=== PATIENT | male | born 1985 | race Caucasian/White ===

== ENCOUNTER 2020-08-25 23:42 | Emergency (ER) | payer BC, SELFPAY ==
[2020-08-25 23:48] VITALS: BP 127/98; PULSE 111; RESP 20; TEMP 37.2; O2SAT 96; BMI 30.7
--- NOTE | 2020-08-26 01:22 | ED.EYEPROB ---
HPI - Eye Problem General Chief complaint: Eye Problems Stated complaint: eye pain Time Seen by Provider: 08/26/20 00:04 Source: patient Mode of arrival: ambulatory History of Present Illness HPI Narrative: left eye pain. Patient has been having left eye pain for the intermittent for the past several weeks. Patient states has seen the ER doctor and then eye doctor and continues to have intermittent pain. Using p.r.n. eyedrops. No change in vision painful with movement eyelid. No nausea no vomiting no fevers MD chief complaint: eye pain ( left) Severity: mild Severity scale (1-10): 4 If Pain, Quality: sharp Related Data Home Medications Medication Instructions Recorded Confirmed cetirizine [Zyrtec] 10 mg PO DAILY 08/25/20 08/25/20 omeprazole 20 mg PO DAILY 08/25/20 08/25/20 sildenafil [Viagra] 100 mg PO DAILY PRN 08/25/20 08/25/20 Previous Rx's Medication Instructions Recorded erythromycin 1 applic OPHTHALMIC (EYE) 6XD 7 08/26/20 Days #3.5 g naproxen 500 mg PO Q8H PRN #20 tab 08/26/20 Allergies Allergy/AdvReac Type Severity Reaction Status Date / Time amoxicillin [AMOXICILLIN] Allergy Unknown HIVES Verified 08/25/20 23:53 ciprofloxacin [From CIPRO] Allergy Unknown UNKNOWN Verified 08/25/20 23:53 codeine [CODEINE] Allergy Unknown UNKNOWN Unverified 08/05/20 16:50 Review of Systems Review of Systems: Constitutional : No Weight loss, No Fever, No Chills, No Night Sweats, No Fatigue, No Malaise ENT/Mouth : No Hearing loss, No Ear Pain, No Nasal Congestion, No Sinus Pain, No Hoarseness, No sore throat, No Rhinorrhea, No Swallowing Difficulty Eyes: left Eye Pain, No Swelling, No Redness, No Foreign Body, No Discharge, No Vision Changes Cardiovascular : No Chest Pain, No SOB, No Dyspnea on Exertion, No Orthopnea, No Edema, No Palpitations Respiratory : No Cough, No Sputum, No Wheezing, No Smoke Exposure, No Dyspnea Gastrointestinal : No Nausea, No Vomiting, No Diarrhea, No Constipation, No abdominal Pain, No Hematochezia, No Melena Genitourinary : no irregular bleeding, No Dysuria, No Urinary Frequency, No Hematuria, No Urinary Incontinence, No Urgency, No Flank Pain, No Urinary Flow Changes, No Hesitancy Musculoskeletal : No joint pain, No Myalgias, No Joint Swelling Skin : No Skin Lesions, No rash Neuro : No Weakness, No Numbness, No Paresthesias, No Loss of Consciousness, No Dizziness, No Headache Psych : No Anxiety/Panic, No Depression, No SI/HI/AH/VH, No Social Issues, Heme/Lymph: No Bruising, No Bleeding,No Lymphadenopathy Endocrine : No Polyuria, No Polydipsia, No Temperature Intolerance Yes all other systems are reviewed and are negative [facility] Past Medical History Attestation statement: The following information was validated with the patient. Medical History (Updated 08/26/20 @ 01:54 by Mika Hardy DO) Patient denies medical problems Family History Family History (Updated 08/26/20 @ 01:52 by Mika Hardy DO) Other Patient denies medical problems Social History Social History Advance Directives: No Advance Directives Information Provided: No Physical Exam Vital Signs and I&O and Narrative: Vital Signs and I&O: Vital Signs Temp 98.9 F 08/25/20 23:48 Pulse 111 H 08/25/20 23:48 Resp 20 08/25/20 23:48 BP 127/98 H 08/25/20 23:48 Pulse Ox 96 08/25/20 23:48 Intake & Output 08/25/20 08/25/20 08/26/20 06:59 18:59 06:59 Weight 99.79 kg Body Mass Index 30.7 reviewed Appearance: Alert. Oriented X3. No acute distress. Eyes: Pupils equal, round and reactive to light. left eye pressure 13. positive fluorescein uptake on left. no foreign body identified ENT: Pharynx normal. Neck: Normal inspection. Neck supple. CVS: Normal heart rate and rhythm. Pulses normal. Respiratory: No respiratory distress. Breath sounds normal. Abdomen: Soft and nontender. Skin: Skin warm and dry. Normal skin color. Normal skin turgor. Extremities: No lower extremity edema. No lower extremity edema. Neuro: Oriented X 3. No motor deficit. No sensory deficit. Discharge Plan Discharge Clinical Impression: Corneal abrasion Qualifiers: Encounter type: initial encounter Laterality: left Qualified Code(s): S05.02XA - Injury of conjunctiva and corneal abrasion without foreign body, left eye, initial encounter Patient Disposition: Home, Self-Care Instructions: Corneal Abrasion (ED) Additional Instructions: Thank you for visiting the emergency department today. If your symptoms worsen or do not resolve completely please return to the emergency department immediately or call 911. if he have any questions please call your primary care physician Prescriptions: New erythromycin 5 mg/gram (0.5 %) ointment 1 applic ophthalmic (eye) 6XD 7 Days Qty: 3.5 RF: 0 naproxen 500 mg tablet 500 mg PO Q8H PRN (Reason: pain) Qty: 20 RF: 0 No Action cetirizine [Zyrtec] 10 mg Tablet 10 mg PO DAILY RF: 0 sildenafil [Viagra] 100 mg Tablet 100 mg PO DAILY PRN (Reason: Erectile Dysfunction) RF: 0 omeprazole 20 mg Capsule,Delayed Release(Dr/Ec) 20 mg PO DAILY RF: 0 Referrals: Justin Borges [Physician] - 2 days Stand Alone Forms: Work/School Release Interventions: ED Discharge Assessment Last Done: 08/26/20 02:15 Discharge Date/Time: 08/26/20 02:19
[2020-08-26] MEDS: Fluorescein Sodium STRIP 1 STRIP EYE-LEFT (01:56)
[2020-08-26] MEDS: Tetracaine HCl/PF 0.5% Oph Sol 4 ML DROPS 3 DROP EYE-LEFT (01:56)
[2020-08-26] MEDS: Erythromycin Base 0.5% Oph Oin 1 GM TUBE 1 CM EYE-LEFT (01:58)
== END 2020-08-26 02:19 | disposition home or self-care (01) ==
PROVIDERS: Emergency Provider Emergency Medicine
DX: S05.02XA Injury of conjunctiva and corneal abrasion without foreign body, left eye, initial encounter (principal); X58.XXXA Exposure to other specified factors, initial encounter; Y93.9 Activity, unspecified; Y92.9 Unspecified place or not applicable; Y99.9 Unspecified external cause status
CPT/HCPCS: 90471; 90715; 99283; 99284

== ENCOUNTER 2021-01-26 03:27 | Emergency (ER) | payer BC, SELFPAY ==
--- NOTE | 2021-01-26 | ECG_ITS ---
Test Reason : CHEST PAIN Blood Pressure : / mmHG Vent. Rate : 081 BPM Atrial Rate : 081 BPM P-R Int : 168 ms QRS Dur : 098 ms QT Int : 374 ms P-R-T Axes : 026 014 028 degrees QTc Int : 434 ms Normal sinus rhythm Normal ECG No previous ECGs available Referred By: Suresh Harrison Electronically Signed By:Waldo Glasgow
--- NOTE | ~2021-01-26 | XR_ITS ---
EXAMINATION: XR CHEST CLINICAL INFORMATION: Chest pain COMPARISON: Chest radiographs 03/28/2016, 12/04/2015 TECHNIQUE: Portable upright AP view of the chest was obtained. FINDINGS: There is no pneumothorax, pneumomediastinum, pleural reaction, or effusion. The heart is normal in size. The vascularity is normal. There is some mild coarsening of the bronchiolar markings but no airspace consolidation or groundglass opacity. The hilar and mediastinal contours and bony structures are unremarkable. XR/XR chest 1V IMPRESSION: Mild coarsening bronchiolar markings. Lungs otherwise clear.
== END 2021-01-26 06:00 | disposition home or self-care (01) ==
PROVIDERS: Emergency Provider Internal Medicine
DX: R07.89 Other chest pain (principal); I10 Essential (primary) hypertension; E11.9 Type 2 diabetes mellitus without complications; E78.5 Hyperlipidemia, unspecified; K22.70 Barrett's esophagus without dysplasia; F17.200 Nicotine dependence, unspecified, uncomplicated
CPT/HCPCS: 71045; 93005; 99283

== ENCOUNTER 2022-03-28 18:27 | Emergency (ER) | payer BC, SELFPAY ==
--- NOTE | 2022-03-28 | ECG_ITS ---
Test Reason : CP Blood Pressure : / mmHG Vent. Rate : 092 BPM Atrial Rate : 092 BPM P-R Int : 146 ms QRS Dur : 098 ms QT Int : 346 ms P-R-T Axes : 024 049 044 degrees QTc Int : 427 ms Normal sinus rhythm Normal ECG When compared with ECG of 26-JAN-2021 03:52, No significant change was found Referred By: Generic ED Physician Electronically Signed By:RUSTY ANG MD
[2022-03-28 18:30] VITALS: BP 146/90; PULSE 99; RESP 18; TEMP 35.9; O2SAT 96; BMI 29.0
[2022-03-28 18:44] LABS: MANUAL DIFF FLAG NO
[2022-03-28 18:53] LABS: Basophils Absolute Auto 0.1 X10*3/uL (0.0-0.2); Basophils Percent Auto 0.7 % (0-2); Eosinophils Absolute Auto 0.5 X10*3/uL (0.0-0.4); Eosinophils Percent Auto 7.5 % (0-4); Hematocrit 47.4 % (42.0-52.0); Hemoglobin 16.5 g/dl (14.0-18.0); Imm Gran Abs Auto 0.03 X10*3/uL (0.00-0.03); Imm Gran Pct Auto 0.4 % (0.0-0.4); Lymphocytes Absolute Auto 2.3 X10*3/uL (1.2-4.9); Lymphocytes Percent Auto 31.9 % (20-40); Mean Corpuscular HGB Conc 34.8 g/dl (31.0-36.0); Mean Corpuscular Volume 88.9 fL (80.0-98.0); Monocytes Absolute Auto 0.5 X10*3/uL (0.1-1.2); Monocytes Percent Auto 7.5 % (2-11); Neutrophils Absolute Auto 3.7 x10*3/uL (2.0-8.3); Platelet Count 239 X10*3/uL (160-400); Red Blood Count 5.33 X10*6/uL (4.60-5.80); Red Cell Distribution Width 12.3 % (11.0-16.0); White Blood Count 7.2 X10*3/uL (4.8-10.8)
[2022-03-28 19:02] LABS: Alanine Aminotransferase 29 U/L (0-40); Albumin Level 4.5 g/dL (3.5-5.0); Alkaline Phosphatase 66 U/L (39-117); Anion Gap 12 (12-20); Aspartate Amino Transferase 24 U/L (5-37); Bilirubin Total 0.3 mg/dL (0.0-1.0); Blood Urea Nitrogen 20 mg/dL (9-16); Calcium 9.5 mg/dL (8.4-10.2); Carbon Dioxide 26 mmol/L (22-29); Chloride 105 mmol/L (96-108); Creatinine Clr Calc Pharmacy 112.4; Estimated Glomerular Filt Rate > 60; Glucose Random 92 mg/dL (60-115); Potassium 4.1 mmol/L (3.3-5.1); Sodium 139 mmol/L (135-145); Total Protein 7.2 g/dL (6.5-8.0)
[2022-03-28 19:07] LABS: Troponin-I High Sensitivity < 3.5 ng/L (<3.5-35.0)
[2022-03-28 22:00] VITALS: BP 127/82; PULSE 81; RESP 16; TEMP 36.6; O2SAT 98
--- NOTE | 2022-03-28 22:03 | ED_ITS ---
HPI - Chest Pain General Chief Complaint: Chest Pain Stated Complaint: HBP/dizziness/right arm numb Time Seen by Provider: 03/28/22 22:03 Source: patient Mode of arrival: ambulatory Limitations: no limitations History of Present Illness HPI narrative: Patient is a 36 year old male presenting to the emergency department today after drinking excess caffeine and having a short episode of chest tightness. Patient states that he consumed a total of 600mg of caffeine today and he usually only has 200mg. Patient states that shortly after he finished his final Bang energy drink, he began to feel a chest tightness. Patient states that has now resolved. Patient denies any current dizziness, lightheadedness, abdominal pain, nausea, vomiting, fever, chills, blurry vision, double vision, loss of vision, chest pain, difficulty breathing, shortness of breath, back pain, night sweats, pain with urination, increased urinary frequency, increased urinary urgency, blood in his urine or stool, syncope or a near syncopal episode, recent trauma or falls, bowel incontinence, bladder incontinence, bowel retention, bladder retention, or any other complaints at this time. Patient states that he had an episode similar to this and it was due to excess caffeine then. Risk Factors Coronary artery disease risk factors: none Thoracic aortic dissection risk factors: none Related Data Home Medications Medication Instructions Recorded Confirmed cetirizine 10 mg tablet (Zyrtec) 10 mg PO DAILY 08/25/20 08/25/20 omeprazole 20 mg capsule,delayed 20 mg PO DAILY 08/25/20 08/25/20 release sildenafil 100 mg tablet (Viagra) 100 mg PO DAILY PRN 08/25/20 08/25/20 Previous Rx's Medication Instructions Recorded erythromycin 5 mg/gram (0.5 %) eye 1 applic OPHTHALMIC (EYE) 6XD 7 08/26/20 ointment Days #3.5 g naproxen 500 mg tablet 500 mg PO Q8H PRN #20 tab 08/26/20 Allergies Allergy/AdvReac Type Severity Reaction Status Date / Time amoxicillin [AMOXICILLIN] Allergy Unknown HIVES Verified 08/25/20 23:53 ciprofloxacin [From CIPRO] Allergy Unknown UNKNOWN Verified 08/25/20 23:53 codeine [CODEINE] Allergy Unknown UNKNOWN Unverified 08/05/20 16:50 Review of Systems Constitutional: Constitutional: Reports no additional constitutional complaints, Denies chills, Denies fever(s) and Denies night sweats Eyes: Eyes: Reports no additional eye complaints, Denies blurry vision, Denies change in vision, Denies diplopia, Denies eye discharge, Denies loss of vision and Denies eye pain ENT: Denies dizziness Cardiovascular: Cardiovascular: Reports no additional cardiovascular complaints, Denies chest pain, Denies lightheadedness, Denies Loss of Consciousness and Denies dyspnea Respiratory: Respiratory: Reports no additional respiratory complaints and Denies dyspnea Gastrointestinal: Gastrointestinal: Reports no additional gastrointestinal complaints, Denies abdominal pain, Denies melena, Denies hematochezia, Denies change in bowel habits and Denies change in stool character Genitourinary: Genitourinary: Reports no additional male genitourinary complaints, Denies hematuria, Denies oliguria, Denies difficulty urinating, Denies dysuria, Denies urinary frequency, Denies urinary hesitancy, Denies urinary incontinence and Denies urinary urgency Musculoskeletal: Musculoskeletal: Reports no additional musculoskeletal complaints, Denies numbness and Denies tingling Neurologic: Denies dizziness, Denies loss of vision, Denies numbness and Denies tingling Psychiatric: Psychiatric: Reports no additional psychiatric complaints Endocrine: Endocrine: Reports no additional endocrine complaints Hematologic/Lymphatic: Hematologic/Lymphatic: Reports no additional hematologic/lymphatic complaints Allergic/Immunologic: Allergic/Immunologic: Reports no additional allergic/immunologic complaints [facility] Past Medical History Attestation statement: The following information was validated with the patient. Source: old records reviewed Medical History No known health problems Patient denies medical problems Surgical History No history of previous surgery Family History Family History Other Patient denies medical problems Social History Social History Advance Directives: No Advance Directives Information Provided: No Physical Exam Vital Signs: Vital Signs: Last Vital Signs Temp 97.8 F 03/28/22 22:00 Pulse 81 03/28/22 22:00 Resp 16 03/28/22 22:00 BP 127/82 03/28/22 22:00 Pulse Ox 98 03/28/22 22:00 BMI result Body Mass Index 29.0 Const: General: cooperative, no acute distress, alert and awake Nutritional Appearance: well nourished Orientation/consciousness: patient oriented x3 Limitations: no limitations HEENT: Head: Yes normal to inspection and Yes atraumatic Ears: hearing grossly normal bilaterally and external ears normal General nose exam: Normal external nose present, no nasal discharge noted and no epistaxis Face and sinus: Yes normal facial exam, No abrasion and No laceration Mouth: Normal oral and palatal mucosa present, no drooling and no muffled voice Eyes: General: appearance normal, both eyes and all related structures Periorbital: periorbital findings normal Eyelids: Yes eyelids normal Conjunctivae: conjunctivae normal Pupils: Equal, round and reactive pupils present EOM: EOMs intact bilaterally Neck: Neck: Yes normal visual inspection, Yes full ROM and Yes no lymphadenopathy Chest: Chest palpation & inspection: normal inspection of the chest Resp: Effort & Inspection: normal respiratory effort and able to speak in complete sentences Auscultation: clear to auscultation bilaterally Cardio: Rate: regular rate Rhythm: regular rhythm GI: Inspection: Yes normal to inspection Neuro: General: patient oriented x3 and moves all extremities Cranial nerves: Yes Equal, round and reactive pupils present Cognition (Neuro): normal cognition Motor exam (neuro): 5/5 motor strength present throughout Sensory Exam: Normal double simultaneous stimulation for sensation Coordination: [id number] test normal Extrem: General: Yes normal to inspection, Yes full ROM and Yes capillary refill normal Psych: Appearance: grossly normal Mental Status: mental status grossly normal Affect: normal affect Attitude: cooperative Thought process: Normal thought process present Thought content: Normal thought content present Insight: Good insight present (Psych) MDM - Chest Pain MDM Narrative Medical decision making narrative: Patient is a 36 year old male presenting to the emergency department today with resolved chest tightness after ingesting excess caffeine. Patient's physical exam was unremarkable. Patient's blood work was unremarkable. Patient's EKG was unremarkable. I explained my physical exam findings as well as all test results to the patient. I answered all questions asked by the patient. I stressed the importance of the patient taking his medication as prescribed. 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 I stressed the importance of the patient returning to the emergency department immediately if his symptoms were to worsen or if he were to develop any dizziness, shortness of breath, difficulty breathing, chest pain, blurry vision, loss of vision, nausea, vomiting, abdominal pain, fever, chills, back pain, or any other complaints. Patient [and the patient's] verbalized agreement and understanding with this treatment plan and discharge. Differential Diagnosis Differential diagnosis: Likely atypical chest pain Differential diagnosis: caffeine overdose Medical Records Data Attestation: I reviewed the patient's medical records. Lab Data Attestation: I reviewed the patient's lab results. Result diagrams: 03/28/22 18:41 03/28/22 18:41 Labs: Lab Results 03/28/22 03/28/22 03/28/22 Range/Units 18:41 18:41 18:41 WBC 7.2 (4.8-10.8) X10*3/uL RBC 5.33 (4.60-5.80) X10*6/uL Hgb 16.5 (14.0-18.0) g/dl Hct 47.4 (42.0-52.0) % MCV 88.9 (80.0-98.0) fL MCH 31.0 (27.0-33.0) pg MCHC 34.8 (31.0-36.0) g/dl RDW 12.3 (11.0-16.0) % Plt Count 239 (160-400) X10*3/uL MPV 10.0 (9.4-12.4) fL Immature Gran % (Auto) 0.4 (0.0-0.4) % Neut % (Auto) 52.0 (45-73) % Lymph % (Auto) 31.9 (20-40) % Hardeman % (Auto) 7.5 (2-11) % Eos % (Auto) 7.5 H (0-4) % Baso % (Auto) 0.7 (0-2) % Lymph # (Auto) 2.3 (1.2-4.9) X10*3/uL Hardeman # (Auto) 0.5 (0.1-1.2) X10*3/uL Eos # (Auto) 0.5 H (0.0-0.4) X10*3/uL Baso # (Auto) 0.1 (0.0-0.2) X10*3/uL Abs Immat Gran (auto) 0.03 (0.00-0.03) X10*3/uL Absolute Neuts (auto) 3.7 (2.0-8.3) x10*3/uL Absolute Nucleated RBC 0.000 (0.0-0.012) X10*3/uL Nucleated RBC % (auto) 0.0 (0.0-0.2) /100WBC Sodium 139 (135-145) mmol/L Potassium 4.1 (3.3-5.1) mmol/L Chloride 105 (96-108) mmol/L Carbon Dioxide 26 (22-29) mmol/L Anion Gap 12 (12-20) BUN 20 H (9-16) mg/dL Creatinine 0.92 (0.5-1.4) mg/dL Estim Creat Clear Calc 112.4 Estimated GFR > 60 Random Glucose 92 (60-115) mg/dL Calcium 9.5 (8.4-10.2) mg/dL Total Bilirubin 0.3 (0.0-1.0) mg/dL AST 24 (5-37) U/L ALT 29 (0-40) U/L Alkaline Phosphatase 66 (39-117) U/L Troponin I High Sens < 3.5 (<3.5-35.0) ng/L Total Protein 7.2 (6.5-8.0) g/dL Albumin 4.5 (3.5-5.0) g/dL ECG Data ECG #1: Attestation: I personally reviewed and interpreted this ECG as follows: ECG interpretation date: 03/28/22 ECG interpretation time: 18:30 Prior ECG tracings: available for review Interpretation: Vent. Rate: 092 BPM ? ? Atrial Rate: 092 BPM P-R Int: 146 ms? QRS Dur: 098 ms QT Int: 346 ms ? ? ? P-R-T Axes: 024 049 044 degrees QTc Int: 427 ms ? Normal sinus rhythm Normal ECG When compared with ECG of 26-JAN-2021 03:52, No significant change was found DD/ 1830 Discharge Plan Discharge Clinical Impression: Caffeine overdose Patient Disposition: Home, Self-Care Instructions: Caffeine Use (ED) Additional Instructions: Follow up with your primary care provider. Return to the emergency department immediately if your symptoms worsen or if you develop any dizziness, shortness of breath, difficulty breathing, chest pain, blurry vision, loss of vision, nausea, vomiting, abdominal pain, fever, chills, back pain, or any other complaints. Prescriptions: No Action cetirizine [Zyrtec] 10 mg Tablet 10 mg PO DAILY 0RF sildenafil [Viagra] 100 mg Tablet 100 mg PO DAILY PRN (Reason: Erectile Dysfunction) 0RF omeprazole 20 mg Capsule,Delayed Release(Dr/Ec) 20 mg PO DAILY 0RF erythromycin 5 mg/gram (0.5 %) ointment 1 applic ophthalmic (eye) 6XD 7 Days Qty: 3.5 0RF naproxen 500 mg tablet 500 mg PO Q8H PRN (Reason: pain) Qty: 20 0RF Referrals: [facility] [place] Cardiovascular Services [Provider Group] [facility] [place] Family Medicine [Provider Group] [facility] [place] Primary CarePeter [Provider Group] [facility] [place] Primary CareMichael [Provider Group] Interventions: ED Discharge Assessment Last Done: 03/28/22 22:24 Discharge Date/Time: 03/28/22 22:28 Print Language: Kazakh
--- NOTE | 2022-03-28 22:28 | PC.NURSE ---
pt left prior to being discharged
== END 2022-03-28 22:28 | disposition home or self-care (01) ==
PROVIDERS: Emergency Provider Internal Medicine
DX: T43.611A Poisoning by caffeine, accidental (unintentional), initial encounter (principal); R07.89 Other chest pain; R42 Dizziness and giddiness; Y92.9 Unspecified place or not applicable; Z79.899 Other long term (current) drug therapy
CPT/HCPCS: 36415; 80053; 84484; 85025; 93005; 99283; 99284

== ENCOUNTER 2022-09-18 11:51 | Emergency (ER) | payer BC, SELFPAY ==
[2022-09-18 12:02] VITALS: BP 144/79; PULSE 101; RESP 18; TEMP 35.9; O2SAT 96; BMI 27.8
--- NOTE | 2022-09-18 14:24 | ED_ITS ---
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 Patient denies any fever, chills, nausea, vomiting, diarrhea and denies any urinary pain/burning/frequency. Patient also denies any groin numbness or pain/tingling into either lower extremity and denies any bowel or bladder dysfunction. Related Data Home Medications Medication Instructions Recorded Confirmed cetirizine 10 mg tablet (Zyrtec) 10 mg PO DAILY 08/25/20 08/25/20 omeprazole 20 mg capsule,delayed 20 mg PO DAILY 08/25/20 08/25/20 release sildenafil 100 mg tablet (Viagra) 100 mg PO DAILY PRN Erectile 08/25/20 08/25/20 Dysfunction Previous Rx's Medication Instructions Recorded erythromycin 5 mg/gram (0.5 %) eye 1 applic ophthalmic (eye) 6XD to 08/26/20 ointment left eye 7 days #3.5 grams naproxen 500 mg tablet 500 mg PO Q8H PRN pain #20 tabs 08/26/20 cyclobenzaprine 5 mg tablet 5 mg PO BEDTIME PRN muscle spasm 09/18/22 #4 tabs ketorolac 10 mg tablet 10 mg PO Q6H PRN pain 5 days #20 09/18/22 tabs Allergies Allergy/AdvReac Type Severity Reaction Status Date / Time amoxicillin [AMOXICILLIN] Allergy Unknown HIVES Verified 08/25/20 23:53 ciprofloxacin [From CIPRO] Allergy Unknown UNKNOWN Verified 08/25/20 23:53 codeine [CODEINE] Allergy Unknown UNKNOWN Unverified 08/05/20 16:50 Review of Systems Review of Systems: Pertinent positives and negatives as stated in HPI 10 point review of systems otherwise negative. [facility] Past Medical History Source: nursing notes reviewed Medical History No known health problems Patient denies medical problems Surgical History No history of previous surgery Family History Family History Other Patient denies medical problems Physical Exam Vital Signs: Vital Signs: Last Vital Signs Temp 96.7 F L 09/18/22 12:02 Pulse 101 H 09/18/22 12:02 Resp 18 09/18/22 12:02 BP 144/79 H 09/18/22 12:02 Pulse Ox 96 09/18/22 12:02 O2 Del Method 09/18/22 12:02 BMI result Body Mass Index 27.8 VITAL SIGNS: Reviewed. GENERAL: Well developed, well nourished, in no acute distress. HEAD: Normocephalic/atraumatic EYES: PERRLA, EOMI EARS: Ext canals without abnormality OROPHARYNX: no oral lesions noted, posterior pharynx clear LUNGS: Normal breath sounds. No adventitious sounds or accessory muscle use. SpO2<96> CARDIOVASCULAR: Regular rate and rhythm without noted murmurs ABDOMEN: Soft, non-tender, non-distended with bowel sounds. BACK: No midline vertebral tenderness noted, very mild pain on palpation over the right paraspinal spasm noted MUSCULOSKELETAL: No tenderness, deformities, or effusions noted on gross inspection. EXTREMITIES: No cyanosis, clubbing or edema. SKIN: Inspection of the skin reveals no rashes NEUROLOGIC: Alert and oriented x 4. Strength and sensation to light touch were grossly intact x 4. Course Course Course Narrative: 37-year-old male with history and clinical presentation consistent with muscle strain and concomitant spasm and there is no evidence of renal colic, cauda equina. Patient provided with combination analgesics as well as lidocaine patch. Discharge Plan Discharge Clinical Impression: Strain of lumbar region, Muscle spasm Patient Disposition: Home, Self-Care Instructions: Muscle Strain (ED), Muscle Spasm (ED) Additional Instructions: 1. Tylenol 1000 mg, orally, every 6 hours as needed for pain control. Do not exceed 4000 mg within 24 hours. 2. Lidocaine patch, apply to area of maximal tenderness as directed on the outside packaging. 3. You have been given a prescription for Toradol (ketorolac) and you should take this as prescribed and stop taking any other Motrin/ibuprofen/Aleve/naproxen. 4. Follow-up with primary care provider for re-evaluation next 1-2 days. Return to the ER for worsening symptoms. Prescriptions: New ketorolac 10 mg tablet 10 mg PO Q6H PRN (Reason: pain) 5 Days Qty: 20 0RF Rx Instructions: 1. Patient received Toradol in the emergency room. 2. Please reinforce the patient should no longer take naproxen or any other NSAID. cyclobenzaprine 5 mg tablet 5 mg PO BEDTIME PRN (Reason: muscle spasm) Qty: 4 0RF No Action cetirizine [Zyrtec] 10 mg Tablet 10 mg PO DAILY sildenafil [Viagra] 100 mg Tablet 100 mg PO DAILY PRN (Reason: Erectile Dysfunction) omeprazole 20 mg Capsule,Delayed Release(Dr/Ec) 20 mg PO DAILY erythromycin 5 mg/gram (0.5 %) ointment 1 applic ophthalmic (eye) 6XD 7 Days Qty: 3.5 0RF naproxen 500 mg tablet 500 mg PO Q8H PRN (Reason: pain) Qty: 20 0RF Referrals: Rickey Abraham III, MD [Primary Care Provider] -
[2022-09-18] MEDS: Acetaminophen 325 MG TABLET 975 MG PO (14:33)
[2022-09-18] MEDS: Lidocaine 4 % Patch ADH..PATCH 1 PATCH TRANSDERMA (14:33)
[2022-09-18] MEDS: Ketorolac Tromethamine 15 MG/ML VIAL IM (14:34)
== END 2022-09-18 14:47 | disposition home or self-care (01) ==
PROVIDERS: Emergency Provider Student in an Organized Health Care Education/Training Program; PCP Internal Medicine
DX: M54.50 Low back pain, unspecified (principal); Z79.899 Other long term (current) drug therapy
CPT/HCPCS: 96372; 96374; 99283; 99284; J1885